=== PATIENT | male | born 1965 | race Asian ===

== ENCOUNTER 2019-01-15 10:44 | Inpatient (IN) | payer MEDICAID ==
[~2019-01-15] VITALS: Ht 160 cm; Wt 64.0 kg
[2019-01-15 10:55] VITALS: BP 156/103
--- NOTE | 2019-01-15 10:55 | NUR ---
PT BENJY BLS TO ER BED 08
--- NOTE | 2019-01-15 11:07 | NUR ---
MANDARIN SPEAKING PT BIB [facility] FROM HOME WITH C/O RUN OUT OF G-TUBE FEEDING FOR 9 DAYS WITH WEAKNESS AND UNABLE TO TALK AT THIS TIME. HAS BEEN ONLY DRINKING WATER. NORMALLY WALKS WITH A WALKER AND SEEN AT [facility]. HX; HTN, STROKE, COPD, ANXIETY RX; ALPRAZOLAM, CLONIDINE, DUONEB, LANSOPRAZOLE, LEVETIRACETAM, METOPROLOL, NITROGLYCERIN. PATIENT POSITIONED FOR COMFORT; HOB ELEVATED; BEDRAILS UP X2; BED DOWN. ER MD MADE AWARE OF PT STATUS.
--- NOTE | 2019-01-15 11:21 | NUR ---
STATED 1 MONTH AGO PT CAN EAT BY HIMSELF AND SHE DID NOT FEED HIM BY G TUBE. REPORT PT UNABLE TO EAT FOR 9 DAYS & DOES NOT HAVE NUTRITION FOOD TO FEED HIM BY G TUBE.
[2019-01-15] MEDS ORDERED: NACL 0.9% 2,000 ML IV SCH (11:37)
[2019-01-15] MEDS ORDERED: PIPERACILLIN/TAZOBACTAM 3.375 GM in DEXT 5% MINI-BAG PLUS 50 ML IV ONE (11:40)
[2019-01-15] MEDS ORDERED: FAMOTIDINE 20 MG/2 ML VIAL IVP ONE (11:40)
[2019-01-15] MEDS ORDERED: ONDANSETRON 4 MG/2 ML VIAL IVP ONE (11:40)
[2019-01-15] MEDS ORDERED: ACET-2619 PO (11:50)
--- NOTE | 2019-01-15 11:53 | NUR ---
ABG ATTEMPTED PT PULLED ARM AWAY AND STARTED TO WAVE HAND SAYING NO FAMILY AT BEDSIDE RN RITU FERRARA AND DR. RAMIREZ NOTIFIED
--- NOTE | 2019-01-15 11:54 | NUR ---
PT REFUSED ABG OR ANY MORE BLOOD DRAW, ER NOTIFTED.
--- NOTE | 2019-01-15 11:56 | NUR ---
LAB AT BEDSIDE
[2019-01-15 12:11] LABS: BASOPHILS # (AUTO) 0.1 K/uL (0.00-0.22); BASOPHILS % (AUTO) 0.3 % (0.0-2.0); HEMATOCRIT 51.1 % (36-52); HEMOGLOBIN 16.6 g/dL (12.0-18.0); LYMPHOCYTES # (AUTO) 1.4 K/uL (2.0-11.5); LYMPHOCYTES % (AUTO) 8.2 % (20.5-51.1); MEAN CORPUSCULAR HEMOGLOBIN 30 pg (27-31); MEAN CORPUSCULAR HGB CONC 32 g/dL (33-37); MEAN CORPUSCULAR VOLUME 92.3 fL (80-94); MONOCYTES # (AUTO) 1.4 K/uL (0.8-1.0); MONOCYTES % (AUTO) 7.9 % (1.7-9.3); NEUTROPHILS # (AUTO) 14.7 K/uL (1.8-7.7); NEUTROPHILS % (AUTO) 83.6 % (42.2-75.2); PLATELET COUNT (AUTO) 271 K/uL (140-450); RED BLOOD CELL COUNT(AUTO) 5.53 MIL/uL (4.20-6.10); WHITE BLOOD COUNT (AUTO) 17.6 K/uL (4.8-10.8)
[2019-01-15] MEDS ORDERED: PIPERACILLIN/TAZOBACTAM 3.375 GM VIAL IV ONE (12:19)
--- NOTE | 2019-01-15 12:28 | NUR ---
PT TAKEN TO CT AT THIS TIME
[2019-01-15 12:33] LABS: PROTHROMBIN TIME 11.6 secs (10.8-13.4)
--- NOTE | 2019-01-15 12:41 | NUR ---
PT RETURNED FROM CT AT THIS TIME
[2019-01-15 13:25] LABS: ALBUMIN 3.7 g/dL (3.4-5.0); CARBON DIOXIDE 28.8 mmol/L (21-32); CREATININE 2.7 mg/dL (0.7-1.3); POTASSIUM 4.7 mmol/L (3.5-5.1); TOTAL BILIRUBIN 0.7 mg/dL (0.0-1.0)
[2019-01-15 13:34] LABS: ANION GAP 18.9 (8-16)
[2019-01-15 13:54] LABS: ACETONE, SERUM NEGATIVE (NEGATIVE); URIC ACID 15.1 mg/dL (2.6-7.2)
[2019-01-15 14:01] LABS: AMYLASE 226 U/L (25-115); LIPASE 345 U/L (73-393)
[2019-01-15 14:02] LABS: GAMMA GLUTAMYL TRANSFERASE 24 U/L (7-51)
--- NOTE | 2019-01-15 14:11 | NUR ---
PT URENATED ON DIAPER. ATTAMPED INSERT ROSALES'S CATH BUT UNSUCCESSFUL. NOTIFIED DR RAMIREZ ORDER URINE BAG.
[2019-01-15] MEDS ORDERED: NACL 0.9% 1,000 ML IV SCH (14:23)
[2019-01-15] MEDS ORDERED: DOCUSATE SODIUM 100 MG GELCAP PO PRN (14:25)
[2019-01-15] MEDS ORDERED: MORPHINE SULFATE 2 MG/ML SYR IVP PRN (14:25)
[2019-01-15] MEDS ORDERED: ONDANSETRON 4 MG/2 ML VIAL IM/IVP PRN (14:25)
[2019-01-15] MEDS ORDERED: ACETAMINOPHEN 325 MG TAB PO PRN (14:25)
[2019-01-15] MEDS ORDERED: ZOLPIDEM 5 MG TAB PO PRN (14:25)
[2019-01-15] MEDS ORDERED: HYDROcodone/APAP 5/325 MG 1 TAB TAB PO PRN (14:25)
[2019-01-15] MEDS ORDERED: MECLIZINE 25 MG TAB PO PRN (15:05)
[2019-01-15 15:17] LABS: CHOL/HDL RATIO 5.3 (1-4.5); PHOSPHORUS 5.4 mg/dL (2.5-4.9); THYROID STIMULATING HORMONE 0.25 uIU/mL (0.34-3.74)
[2019-01-15 15:45] VITALS: BP 160/82
--- NOTE | 2019-01-15 15:45 | NUR ---
Patient will be admitted to care of DR CHAPPELL. Admited to TELE. Will go to room 105B. Belongings list completed. Report to DANII MICHELLE .
--- NOTE | 2019-01-15 15:45 | NUR ---
RECEIVED BEDSIDE REPORT FROM PATTERN STAMPER NURSE. PATIENT IS NONVERBAL. SKIN IS INTACT, SCABS ON BLE. IV ON L AC 20G SL. CLEAN, DRY AND INTACT. FALL RISK PROTOCOL IN PLACE. PATIENT HX STROKE. L SIDE WEAKNESS. PATIENT IS INCONTINENT. GTUBE IN PLACE. CLEAN, DRY AND INTACT. MRSA SWAB DONE. FAMILY AT BEDSIDE. ADMISSION QUESTIONS ANSWERED. FAMILY SAYS PATIENT PANICS AT HOSPITALS. BED IN LOW POSITION. CALL LIGHT WITHIN REACH. WILL CONTINUE TO MONITOR THE PATIENT.
[2019-01-15] MEDS ORDERED: ALBUTEROL SULFATE/IPRATROPIU 3 ML SOL IH PRN (15:50)
--- NOTE | 2019-01-15 16:05 | NUR ---
PATIENT REFUSED ULTRASOUND, FAMILY SAID THEY DONT WANT IT DONE BECAUSE IT WILL AGITATE HIM MORE. DR ANGELES IS AWARE.
[2019-01-15] MEDS ORDERED: AMLO5TAB PO (16:21)
[2019-01-15] MEDS ORDERED: LOSA50TA66 PO (16:22)
[2019-01-15] MEDS ORDERED: BISACODYL 10 MG SUPP RC SCH (16:35)
[2019-01-15] MEDS ORDERED: CALCIUM ACETATE 667 MG TAB PO SCH (16:45)
[2019-01-15] MEDS ORDERED: MAGNESIUM CITRATE 300 ML BTL GT SCH (17:00)
[2019-01-15] MEDS ORDERED: METOCLOPRAMIDE 10 MG/2 ML INJ VIAL IVP PRN (17:15)
[2019-01-15] MEDS: DEXT 5% / NACL 0.45% 1,000 ML IV SCH (17:54)
[2019-01-15] MEDS: PIPER/TAZO 3.375GM/D5W PREMIX 50 ML IV SCH (17:54)
[2019-01-15] MEDS: ALBUTEROL SULFATE/IPRATROPIU 3 ML SOL IH SCH (18:00)
[2019-01-15] MEDS ORDERED: METOCLOPRAMIDE 10 MG/2 ML INJ VIAL IVP SCH (18:00)
[2019-01-15] MEDS: METOCLOPRAMIDE 10 MG/2 ML INJ VIAL IVP SCH (18:03)
--- NOTE | 2019-01-15 18:40 | NUR ---
CHECKED GTUBE PLACEMENT USING SWOOSH. SWOOSH HEARD. NO RESIDUAL. STARTED FEEDING JEVITY AT 30ML/HR H20 FLUSH 200 Q4HRS.
[2019-01-15 18:41] LABS: ANION GAP 15.4 (8-16); CARBON DIOXIDE 29.4 mmol/L (21-32); CREATININE 2.4 mg/dL (0.7-1.3); POTASSIUM 3.8 mmol/L (3.5-5.1)
--- NOTE | 2019-01-15 19:29 | NUR ---
GAVE BEDSIDE REPORT TO FUEL EFFICIENT AIRCRAFT DESIGNER NURSE. PATIENT ENDORSED IN STABLE CONDITION
--- NOTE | 2019-01-15 19:30 | NUR ---
RECEIVED REPORT FROM DAYSHIFT NURSE AT BEDSIDE FOR CONTINUITY OF CARE. PT AWAKE AND CONFUSED. PT IV NOTED RAC 20G D5 1/2 NS 100. NO SOB NO S/S OF DISTRESS ON 1L NC. BED LOWERED PT HAS SITTER AT BEDSIDE. PT HAS G-TUBE JEVITY 30ML/HR WITH H2O 200 ML Q4H. CALL LIGHT WITHIN REACH WILL CONTINUE TO MONITOR.
[2019-01-15 20:00] VITALS: BP 119/96
--- NOTE | 2019-01-15 20:19 | NUR ---
CHECKED ON PATIENT AND HE IS STABLE AND ALERT SPO2 88 HR 90 PATIENT IS ON ROOM AIR. RT PLACED NASAL CANULA ON PATIENT BUT HE IS NOT COMPLIANT AND KEEPS TAKING THE NASAL CANNULA OFF. PATIENT ALSO KEEPS TAKING RT TX OFF. RN AWARE AND PATIENT IS STABLE AT THIS TIME
[2019-01-15] MEDS: ATORVASTATIN 20 MG TAB PO SCH (20:58)
[2019-01-15] MEDS: LORazepam 2 MG/ML VIAL IM/IVP PRN (20:58)
[2019-01-16] VITALS (7 sets, daily range): BP systolic 102–159; BP diastolic 60–90
[2019-01-16 00:41] LABS: ANION GAP 12.2 (8-16); CARBON DIOXIDE 26.4 mmol/L (21-32); CREATININE 2.8 mg/dL (0.7-1.3); POTASSIUM 3.6 mmol/L (3.5-5.1)
[2019-01-16] MEDS ORDERED: PIPERACILLIN/TAZOBACTAM 3.375 GM VIAL IV ONE (00:54)
[2019-01-16] MEDS: PIPER/TAZO 3.375GM/D5W PREMIX 50 ML IV SCH ×5 (01:21→23:23)
[2019-01-16] MEDS: METOCLOPRAMIDE 10 MG/2 ML INJ VIAL IVP SCH ×4 (01:22→19:12)
[2019-01-16] MEDS: DEXT 5% / NACL 0.45% 1,000 ML IV SCH (02:42)
[2019-01-16] MEDS: LORazepam 2 MG/ML VIAL IM/IVP PRN ×2 (04:02→19:19)
[2019-01-16] MEDS: ALBUTEROL SULFATE/IPRATROPIU 3 ML SOL IH SCH ×3 (06:56→18:47)
--- NOTE | 2019-01-16 07:25 | NUR ---
ENDORSED REPORT TO DAYSHIFT NURSE AT BEDSIDE FOR CONTINUITY OF CARE.
[2019-01-16 07:26] LABS: MAGNESIUM 3.6 mg/dL (1.8-2.4); PHOSPHORUS 3.7 mg/dL (2.5-4.9)
--- NOTE | 2019-01-16 07:26 | NUR ---
RECEIVED BEDSIDE REPORT FROM FISHER PURSE SEINE NURSE. PT IS NOT ALERTED AND ORIENTED; CONFUSED. FLACC-0. NO SIGNS OF DISTRESS NOTED. RA. RESPIRATION IS EVEN AND UNLABORED. IV ON LAC 20G,INTACT AND PATENT INFUSING PER MD ORDER. SCABS NOTED ON BLE, OTHERWISE SKIN IS INTACT AND CLEAN. G-TUBE IS INFUSING 30ML/HR. UNABLE TO AMBULATE; BEDREST AT THIS TIME. SAFETY MEASURES IN PLACE. BED IN LOW POSITION, AND CALL LIGHT WITHIN REACH.
[2019-01-16 07:28] LABS: HEMATOCRIT 46.7 % (36-52); HEMOGLOBIN 14.7 g/dL (12.0-18.0); MEAN CORPUSCULAR HEMOGLOBIN 30 pg (27-31); MEAN CORPUSCULAR HGB CONC 32 g/dL (33-37); MEAN CORPUSCULAR VOLUME 94.6 fL (80-94); PLATELET COUNT (AUTO) 223 K/uL (140-450); RED BLOOD CELL COUNT(AUTO) 4.93 MIL/uL (4.20-6.10); RED CELL DISTRIBUTION WIDTH 14.6 % (11.6-13.7); WHITE BLOOD COUNT (AUTO) 23.8 K/uL (4.8-10.8)
[2019-01-16 07:35] LABS: ANION GAP 13.1 (8-16); CARBON DIOXIDE 28.1 mmol/L (21-32); CREATININE 2.6 mg/dL (0.7-1.3); POTASSIUM 3.2 mmol/L (3.5-5.1)
[2019-01-16 07:54] LABS: LYMPHOCYTES % (MANUAL) 2 % (20-46); MONOCYTES % (MANUAL) 2 % (5-12)
--- NOTE | 2019-01-16 08:04 | NUR ---
PATIENT HAS BEEN SCREENED AND CATEGORIZED HIGH NUTRITION RISK. PATIENT WILL BE SEEN WITHIN 1-2 DAYS OF ADMISSION. 01/16/19-01/17/[address]
--- NOTE | 2019-01-16 08:26 | NUR ---
MARCOS IS AT BEDSIDE.
--- NOTE | 2019-01-16 08:45 | NUR ---
PT HAS A BM. CLEANED PT AND REPOSITIONED PT TO HIS LEFT SIDE AND USED PILLOWS TO OFF LOAD PRESSURE FROM BACK, SACRAL AREA, AND LEGS.
--- NOTE | 2019-01-16 10:06 | NUR ---
S.T. BEDSIDE SWALLOW EVAL COMPLETED. See report for details. Pt presents with profound oropharyngeal dysphagia c/b no observed attempts to orally manipulate boluses across all textures, no pharyngeal swallow response across all textures. Pt is at very high risk for aspiration. Recommend: 1) Strict NPO with non-oral feeding/hydration and meds via G-tube only. 2) Possible reassessment in 2 days if pt's mentation improves and is able to appropriately visually track a speaker and follow simple commands. 3) Spouse at bedside admitted to noncompliance re: oral feeding at home, despite NPO order resulting in G-tube placement. Extensive education is recommended in pt/family's primary language of Mandarin Nigerien. No tx recommended at this time, as pt does not present as strong rehab candidate. D/w VIVIANA Lopez, also at bedside, and who provided language interpretation. Time [id number]
[2019-01-16] MEDS: SENNA 8.6 MG TAB PO SCH ×3 (10:16→17:14)
[2019-01-16] MEDS: LACTOBACILLUS RHAMNOSUS GG 1 EACH CAP PO SCH (10:16)
[2019-01-16] MEDS: TAMSULOSIN 0.4 MG CAP PO SCH (10:16)
[2019-01-16] MEDS: LACTULOSE 20 GM/30 ML UDC PO SCH (10:16)
[2019-01-16] MEDS: amLODIPine 5 MG TAB PO SCH (10:17)
[2019-01-16] MEDS: LOSARTAN 50 MG TAB PO SCH (10:17)
--- NOTE | 2019-01-16 10:27 | NUR ---
ADMINISTERED MEDS PER MD ORDER VIA G-TUBE. CHECKED G-TUBE PLACEMENT USING SWOOSH AND HEARD. CHECKED RESIDUAL AND RECEIVED <5CC. FLUSHED G-TUBE WITH 30ML OF WATER BEFORE AND AFTER MEDICATION ADMINISTER. PT TOLERATED WELL. NO SIGNS OF DISTRESS NOTED. MARCOS IS AT BEDSIDE.
[2019-01-16] MEDS ORDERED: KCL 20 MEQ/WATER INJ PREMIX 100 ML IV SCH (10:39)
--- NOTE | 2019-01-16 10:45 | NUR ---
COLLECTED URINE VIA STRAIGHT CATHETER PER MD ORDER. DELIVERED URINE SPACEMEN TO LAB. PT TOLERATED WELL.
--- NOTE | 2019-01-16 11:15 | NUR ---
ADMINISTERED POTASSIUM PER MD ORDER. POTASSIUM LEVEL 3.2. REPOSITIONED PT TO HIS LEFT SIDE WITH PILLOW TO OFF LOAD PRESSURE FROM BACK, SHOULDER , AND LEGS. MARCOS AT BEDSIDE.
[2019-01-16 13:00] LABS: APPEARANCE,URINE CLOUDY (CLEAR); BILIRUBIN,URINE NEGATIVE (NEGATIVE); BLOOD, URINE 3+ (NEGATIVE); COLOR,URINE YELLOW (YELLOW); LEUKOCYTE ESTERASE ,URINE NEGATIVE (NEGATIVE); NITRITE, URINE NEGATIVE (NEGATIVE); UGLUCOSE NEGATIVE (NEGATIVE)
[2019-01-16 13:06] LABS: BARBITURATE, URINE NEG. ng/ml (NEG <=200); BENZODIAZEPINE, URINE NEG. ng/mL (NEG <=200); CANNABINOID, URINE NEG. ng/mL (NEG <=50); COCAINE, URINE NEG. ng/mL (NEG <=300); OPIATE, URINE NEG. ng/mL (NEG <=2000); PHENCYCLIDINE SCREEN,URINE NEG. ng/mL (NEG <=25)
[2019-01-16 13:15] LABS: RBC,URINE 20-50 /HPF (0-5); WBC,URINE 0-5 /HPF (0-5)
[2019-01-16 13:16] LABS: URIC ACID CRYSTALS,URINE 0-10 /HPF (None Seen)
--- NOTE | 2019-01-16 14:46 | NUR ---
01/16/19 RD INITIAL ASSESSMENT COMPLETED PLEASE REFER TO NUTRITION ASSESSMENT UNDER CARE ACTIVITY FOR ESTIMATED NUTRITIONAL NEEDS. 1. RECOMMEND NEPRO AT 50 ML/HR WITH 200 ML WATER FLUSH Q4H -THIS WILL PROVIDE A VOLUME OF 1200 ML, 2160 ENERGY, 97 GRAMS PROTEIN AND 2072 ML FLUID. IT MEETS 100% OF ENERGY AND PROTEIN NEEDS. 2. RD TO FOLLOW-UP 2-3 DAYS, HIGH RISK DUE TO TUBE FEEDING ANA TORRE, RD
[2019-01-16 15:32] LABS: ANION GAP 12.3 (8-16); CARBON DIOXIDE 27.6 mmol/L (21-32); CREATININE 2.3 mg/dL (0.7-1.3); POTASSIUM 3.9 mmol/L (3.5-5.1)
--- NOTE | 2019-01-16 16:22 | NUR ---
CHECKED PT'S BP; BP 177/130 AND PULSE 109. MD NOTIFIED AND ORDERED HYDRALAZINE IVP. ADMINISTERED PER MD ORDER.
[2019-01-16] MEDS: DEXTROSE 5% 1,000 ML IV SCH (16:24)
[2019-01-16] MEDS ORDERED: hydrALAZINE 20 MG/ML VIAL IVP SCH (16:30)
--- NOTE | 2019-01-16 18:55 | NUR ---
IV INFILTRATED. D/C IV, CANNULA INTACT AND COMPLETED. MINIMAL BLEEDING AT IV SITE. STARTED IV ON L HAND 22G, PATENT AND INTACT. PT TOLERATED WELL.
--- NOTE | 2019-01-16 19:30 | NUR ---
RECEIVED REPORT FROM DAYSHIFT NURSE AT BEDSIDE FOR CONTINUITY OF CARE. PT AWAKE AND CONFUSED. PT IV NOTED RFA 20G D5 125ML/HR. NO SOB NO S/S OF DISTRESS ON 1L NC. BED LOWERED PT HAS SITTER AT BEDSIDE. PT HAS G-TUBE JEVITY 30ML/HR WITH H2O 200 ML Q4H. CALL LIGHT WITHIN REACH WILL CONTINUE TO MONITOR.
[2019-01-16] MEDS: ATORVASTATIN 20 MG TAB PO SCH (20:10)
--- NOTE | 2019-01-16 21:21 | NUR ---
ENDORSED BEDSIDE REPORT TO ON SITE WASTEWATER SYSTEMS TECHNICIAN NURSE FOR CONTINUITY OF CARE. PT IS IN STABLE CONDITION.
[2019-01-17] MEDS: METOCLOPRAMIDE 10 MG/2 ML INJ VIAL IVP SCH ×4 (00:56→18:47)
[2019-01-17] MEDS: LORazepam 2 MG/ML VIAL IM/IVP PRN (00:57)
[2019-01-17] MEDS: DEXTROSE 5% 1,000 ML IV SCH ×3 (00:57→17:18)
[2019-01-17] MEDS ORDERED: HYDRAGUARD CREAM TP ONE (01:23)
[2019-01-17 03:08] LABS: ANION GAP 11.4 (8-16); POTASSIUM 3.4 mmol/L (3.5-5.1)
[2019-01-17 04:00] VITALS: BP 151/94
[2019-01-17] MEDS: PIPER/TAZO 3.375GM/D5W PREMIX 50 ML IV SCH ×3 (05:52→18:40)
[2019-01-17] MEDS: ALBUTEROL SULFATE/IPRATROPIU 3 ML SOL IH SCH ×3 (06:57→19:41)
--- NOTE | 2019-01-17 06:58 | NUR ---
PATIENT UNABLE TO FOLLOW COMMANDS FOR INCENTIVE SPIROMETRY THERAPY DUE ALOC Addendum: 01/17/19 at 0712 by Juancarlos Soares RT PAST HISTORY OF STROKE
[2019-01-17] MEDS ORDERED: VANCOMYCIN PER PHARMACY MC PRN (07:05)
--- NOTE | 2019-01-17 07:39 | NUR ---
ENDORSED REPORT TO DAYSHIFT NURSE AT BEDSIDE FOR CONTINUITY OF CARE.
[2019-01-17 07:54] LABS: MAGNESIUM 3.1 mg/dL (1.8-2.4); PHOSPHORUS 2.8 mg/dL (2.5-4.9)
[2019-01-17 08:00] VITALS: BP 141/96
[2019-01-17] MEDS ORDERED: KCL 20 MEQ/WATER INJ PREMIX 100 ML IV SCH (08:00)
[2019-01-17 08:05] LABS: ANION GAP 11.8 (8-16); CARBON DIOXIDE 28.9 mmol/L (21-32); POTASSIUM 3.7 mmol/L (3.5-5.1)
[2019-01-17 08:06] LABS: BASOPHILS % (AUTO) 0.2 % (0.0-2.0); CREATININE 1.9 mg/dL (0.7-1.3); EOSINOPHILS % (AUTO) 0.2 % (0.0-4.0); HEMATOCRIT 43.8 % (36-52); HEMOGLOBIN 13.8 g/dL (12.0-18.0); LYMPHOCYTES # (AUTO) 1.4 K/uL (2.0-11.5); LYMPHOCYTES % (AUTO) 10.9 % (20.5-51.1); MEAN CORPUSCULAR HEMOGLOBIN 30 pg (27-31); MEAN CORPUSCULAR HGB CONC 31 g/dL (33-37); MEAN CORPUSCULAR VOLUME 94.9 fL (80-94); MONOCYTES # (AUTO) 0.8 K/uL (0.8-1.0); MONOCYTES % (AUTO) 6.1 % (1.7-9.3); NEUTROPHILS # (AUTO) 10.3 K/uL (1.8-7.7); NEUTROPHILS % (AUTO) 82.6 % (42.2-75.2); PLATELET COUNT (AUTO) 204 K/uL (140-450); RED BLOOD CELL COUNT(AUTO) 4.62 MIL/uL (4.20-6.10); RED CELL DISTRIBUTION WIDTH 14.1 % (11.6-13.7); WHITE BLOOD COUNT (AUTO) 12.4 K/uL (4.8-10.8)
[2019-01-17] MEDS ORDERED: KCL 20 MEQ/WATER INJ PREMIX 100 ML IV ONE (08:55)
[2019-01-17] MEDS: TAMSULOSIN 0.4 MG CAP PO SCH (08:55)
--- NOTE | 2019-01-17 08:55 | NUR ---
PT EVALUATED BY DR STEVEN
[2019-01-17] MEDS: LACTULOSE 20 GM/30 ML UDC PO SCH (08:56)
[2019-01-17] MEDS: amLODIPine 5 MG TAB PO SCH (08:56)
[2019-01-17] MEDS: LACTOBACILLUS RHAMNOSUS GG 1 EACH CAP PO SCH (08:56)
[2019-01-17] MEDS: SENNA 8.6 MG TAB PO SCH ×3 (08:56→16:21)
[2019-01-17] MEDS: LOSARTAN 50 MG TAB PO SCH (08:56)
[2019-01-17] MEDS ORDERED: AZITHROMYCIN 250 MG TAB PO SCH (09:00)
[2019-01-17] MEDS: HYDRAGUARD CREAM TP SCH (09:00)
[2019-01-17] MEDS: ASCORBIC ACID 500 MG TAB GT SCH (09:00)
[2019-01-17] MEDS ORDERED: ASCORBIC ACID 500 MG/5 ML ORASYR GT SCH (09:00)
--- NOTE | 2019-01-17 09:00 | NUR ---
PER DR STEVEN, NO NEED TO ADMINISTER K-RIDER. POTASSIUM LEVEL 3.7 AT THIS TIME
[2019-01-17] MEDS ORDERED: NACL 0.9% 500 ML IV SCH (09:25)
[2019-01-17] MEDS: VANCOMYCIN 750 MG in DEXTROSE 5% 250 ML IV SCH (11:23)
[2019-01-17 12:00] VITALS: BP 114/74
--- NOTE | 2019-01-17 14:11 | NUR ---
PT CALMLY RESTING IN BED. NO S/S OF DISTRESS NOTED. AT BEDSIDE
--- NOTE | 2019-01-17 14:19 | NUR ---
PT NOTE 1400 HOLD PT TX FOR TODAY DUE TO ALOC; Pt OPENS EYES BUT UNABLE TO RESPOND TO INSTRUCTIONS; WILL FOLLOW UP WITH Pt ONCE ABLE TO SAFELY PARTICIPATE; RN NOTIFIED
--- NOTE | 2019-01-17 14:40 | NUR ---
PT HAD LOOSE BM. PERINEAL CARE GIVEN. PATIENT TURNED AND REPOSITIONED FOR COMFORT
[2019-01-17 15:06] LABS: ANION GAP 11.4 (8-16); CARBON DIOXIDE 26.7 mmol/L (21-32); CREATININE 1.7 mg/dL (0.7-1.3); POTASSIUM 3.1 mmol/L (3.5-5.1)
[2019-01-17 16:00] VITALS: BP 162/96
--- NOTE | 2019-01-17 16:30 | NUR ---
MADE DR PHAN AWARE OF PATIENT'S ELEVATED BP. DR CABEZAS PUT IN ORDERS
[2019-01-17] MEDS: hydrALAZINE 20 MG/ML VIAL IVP PRN (18:42)
[2019-01-17 20:00] VITALS: BP 150/78
--- NOTE | 2019-01-17 20:00 | NUR ---
PATIENT REPORT GIVEN AT BEDSIDE. PATIENT IN STABLE CONDITION. AT BEDSIDE
--- NOTE | 2019-01-17 20:05 | NUR ---
RECEIVED PT FROM SONA RN PT AOX1 CONFUSED ON TELMETRY SR IV ON RT HAND INFUSING WELL, RELATIVES AT BED SIDE PT TRYING TO GET OUT OF BED BED ALARM G TUBE FEEDING WELL TOLERATED INITIAL ASSESSMENT DONE
--- NOTE | 2019-01-17 21:00 | NUR ---
LAB IS HERE AND FAMILY REFUSED DRAW BLOOD DR AWARE AND PT PULL ;OUT THE IV AND A NEW ONE DWILL BE INSERTED
--- NOTE | 2019-01-17 22:00 | NUR ---
PT HAS A BIG BM SPONGE BATH GIVEN LINEN CHANGED PT ON TELE SR IV ON LEFT HAND INFUSING WELL GAUGE # 22
[2019-01-17] MEDS: ATORVASTATIN 20 MG TAB PO SCH (22:20)
[2019-01-18] VITALS: BP 145/90
[2019-01-18] MEDS: DEXTROSE 5% 1,000 ML IV SCH (00:05)
[2019-01-18] MEDS: METOCLOPRAMIDE 10 MG/2 ML INJ VIAL IVP SCH ×4 (00:27→17:02)
[2019-01-18] MEDS: PIPER/TAZO 3.375GM/D5W PREMIX 50 ML IV SCH ×4 (00:27→17:02)
--- NOTE | 2019-01-18 01:00 | NUR ---
PT SLEEPING WELL REALTIVES AT BED SIDE NOT DISTRESS NOTED PT QUIET ON TELEMETRY SR
[2019-01-18 04:00] VITALS: BP 162/96
--- NOTE | 2019-01-18 04:00 | NUR ---
SPONGE BATH GIVEN LINEN CHANGED, NOT DISTRESS NOTED ON TELE, REPOSITIONED [id number] SR
[2019-01-18] MEDS: hydrALAZINE 20 MG/ML VIAL IVP PRN (04:47)
--- NOTE | 2019-01-18 06:39 | NUR ---
PT LOOKS MORE AWAKE NOT AGITATED G TUBE FEEDING WELL TOLERATED ON TELMETRY SR REMAIN STABLE AT THIS TIME.IV BABATUNDE LEFT HKAND INFUSING WELL
[2019-01-18] MEDS ORDERED: MAG SULF 2000 MG/WATER PREMIX 50 ML IV ONE (07:00)
[2019-01-18] MEDS ORDERED: KCL 20 MEQ/WATER INJ PREMIX 200 ML IV SCH (07:00)
[2019-01-18 07:02] LABS: BASOPHILS % (AUTO) 0.1 % (0.0-2.0); EOSINOPHILS # (AUTO) 0.1 K/uL (0-0.4); EOSINOPHILS % (AUTO) 0.7 % (0.0-4.0); HEMATOCRIT 41.5 % (36-52); HEMOGLOBIN 13.1 g/dL (12.0-18.0); LYMPHOCYTES # (AUTO) 1.3 K/uL (2.0-11.5); LYMPHOCYTES % (AUTO) 11.5 % (20.5-51.1); MEAN CORPUSCULAR HEMOGLOBIN 30 pg (27-31); MEAN CORPUSCULAR HGB CONC 32 g/dL (33-37); MEAN CORPUSCULAR VOLUME 93.5 fL (80-94); MONOCYTES # (AUTO) 0.6 K/uL (0.8-1.0); MONOCYTES % (AUTO) 5.1 % (1.7-9.3); NEUTROPHILS # (AUTO) 9.5 K/uL (1.8-7.7); NEUTROPHILS % (AUTO) 82.6 % (42.2-75.2); PLATELET COUNT (AUTO) 180 K/uL (140-450); RED BLOOD CELL COUNT(AUTO) 4.44 MIL/uL (4.20-6.10); RED CELL DISTRIBUTION WIDTH 13.9 % (11.6-13.7); WHITE BLOOD COUNT (AUTO) 11.5 K/uL (4.8-10.8)
--- NOTE | 2019-01-18 07:18 | NUR ---
REPORT RECEIVED FROM SOIL SCIENCE TEACHER NURSE LEONEL SHAFFER SLEEPING QUIETLY IN NAD, AROUSES EASILY, RESISTS CARE, APPEARS IN NO PAIN OR DISCOMFORT, RESP EVEN UNLABORED ON RA, SKIN WARM DRY COLOR WNL, AT BEDSIDE, POC REVIEWED, ALL SAFETY MEASURES IN PLACE, NO IMMEDIATE NEEDS AT THIS TIME, WILL CONTINUE TO MONITOR.
--- NOTE | 2019-01-18 07:38 | NUR ---
DR MCKEON AND MD TEAM AT BEDSIDE.
[2019-01-18 07:46] LABS: MAGNESIUM 2.5 mg/dL (1.8-2.4); PHOSPHORUS 3.1 mg/dL (2.5-4.9)
[2019-01-18 08:00] VITALS: BP 137/90
[2019-01-18] MEDS: ALBUTEROL SULFATE/IPRATROPIU 3 ML SOL IH SCH ×3 (08:07→19:35)
[2019-01-18 08:09] LABS: ANION GAP 10.2 (8-16); CARBON DIOXIDE 28.9 mmol/L (21-32); CREATININE 1.5 mg/dL (0.7-1.3); POTASSIUM 3.1 mmol/L (3.5-5.1)
--- NOTE | 2019-01-18 08:20 | NUR ---
FAMILY AT BEDSIDE. RECEIVED PATIENT ON ROOM AIR, PULSE OX SAT 96%. SCHEDULED BREATHING TREATMENT ADMINISTERED. TOLERATED TX WELL, NO ADVERSE SIDE EFFECTS. NO RESPIRATORY DISTRESS NOTED. WILL CONTINUE TO MONITOR.
[2019-01-18] MEDS: LORazepam 2 MG/ML VIAL IM/IVP PRN ×2 (08:47→17:03)
[2019-01-18] MEDS: amLODIPine 5 MG TAB PO SCH (08:50)
[2019-01-18] MEDS: LACTOBACILLUS RHAMNOSUS GG 1 EACH CAP PO SCH (08:50)
[2019-01-18] MEDS: TAMSULOSIN 0.4 MG CAP PO SCH (08:50)
[2019-01-18] MEDS: ASCORBIC ACID 500 MG TAB GT SCH (08:51)
[2019-01-18] MEDS: LOSARTAN 50 MG TAB PO SCH (08:51)
[2019-01-18] MEDS: LACTULOSE 20 GM/30 ML UDC PO SCH (09:00)
[2019-01-18] MEDS: SENNA 8.6 MG TAB PO SCH ×3 (09:00→16:40)
[2019-01-18] MEDS: HYDRAGUARD CREAM TP SCH (09:04)
--- NOTE | 2019-01-18 09:05 | NUR ---
PT ATTEMPTING TO GET OUT OUT OF BED, APPEARS AGITATED, TRYING TO GRAB IV TUBING AND GT TUBING, ATIVAN GIVEN PER PRN ORDER, PT REPOSITIONED FOR COMFORT, AM MEDS GIVEN, PT'S STATES HE HAD 4 LOOSE BM YESTERDAY, REFUSED SENNA, LACTULOSE, IV K STARTED, SITE WNL.
[2019-01-18] MEDS: NACL 0.45% IV SCH ×2 (09:14→20:23)
[2019-01-18] MEDS: POTASSIUM CHLORIDE IV SCH ×2 (09:14→20:23)
[2019-01-18] MEDS ORDERED: INSULIN LISPRO SLIDING SCALE 100 UNITS/ML VIAL SUBQ PRN (10:00)
[2019-01-18] MEDS ORDERED: DEXTROSE 50% 50 ML SYR IVP PRN (10:00)
--- NOTE | 2019-01-18 10:35 | NUR ---
PERICARE DONE, DIAPER CHANGED, LINEN CHANGED, POSITIONED FOR COMFORT, PT APPEARS IN NAD, NOW MORE CALM AND RESTING QUIETLY.
--- NOTE | 2019-01-18 11:04 | NUR ---
S.T. BEDSIDE SWALLOW RE-EVAL ORDER RECEIVED, CHART REVIEWED. Pt seen at bedside with spouse present. Clinician with limited Mandarin Macedonian fluency. Pt agitated, unable to sit upright in bed without leaning forward or to side, unable to follow simple verbal commands. Spouse reported that pt responded appropriately earlier this AM to his name by nodding. P.O. trials of ice chip and 2 cc bolus of water attempted x 8 via spoon. Pt demonstrated no attempts at oral prep/bolus manipulation or pharyngeal swallow response to cold stimuli from single ice chips or water on a spoon, despite max verbal and tactile cueing. Pt's ability to tolerate p.o. trials appears worse than during initial eval on 01/16/19. Pt continues to demonstrate a profound oropharyngeal dysphagia and is not appropriate for p.o. intake at this time. Recommend: 1) Continue strict NPO w/ non-oral means of feeding, hydration and meds via G-tube. 2) DC to [facility] as pt presents with very limited rehab potential. No further tx indicated at this time. 3) Education for spouse in regards to providing bolus hydration (water) via G-tube, as she indicated that their feeding pump at home is malfunctioning and the "water side" has not functioned properly. This clinician provided education (with limited language proficiency in Mandarin) re: the risk of aspiration, reason for NPO recommendation, stating that it is 'dangerous' to feed pt at this time. Spouse communicated understanding. Time [id number]
[2019-01-18 12:00] VITALS: BP 140/89
--- NOTE | 2019-01-18 12:09 | NUR ---
VITALS TAKEN, PT SLEEPING QUIETLY IN NAD, RESP EVEN UNLABORED ON RA, NO IMMEDIATE NEEDS AT THIS TIME.
[2019-01-18] MEDS: VANCOMYCIN 750 MG in DEXTROSE 5% 250 ML IV SCH (12:19)
[2019-01-18] MEDS: BLOOD GLUCOSE MONITORING 1 DEV DEV FS SCH ×3 (12:19→20:20)
--- NOTE | 2019-01-18 14:00 | NUR ---
PT RESTING QUIETLY IN NAD, FEEDING TUBE CHANGED, NEW FORMULA BOTTLE STARTED. IV SITE RE-SECURED, NO CHNAGES IN CONDITION.
--- NOTE | 2019-01-18 14:20 | NUR ---
TREATMENT NOT GIVEN. PATIENT ASLEEP. RN NOTIFIED. WILL CONTINUE TO MONITOR.
[2019-01-18 16:00] VITALS: BP 140/88
--- NOTE | 2019-01-18 16:52 | NUR ---
PERICARE DONE, DIAPER CHNAGED, PT RESTLESS, UNABLE TO SIT STILL, TRIES TO GET OUT OF BED, PUSHES AWAY STAFF'S HANDS WITH CARE.
--- NOTE | 2019-01-18 17:14 | NUR ---
RETURNED BACK TO BEDSIDE, PT AWAKE, LOOKING AROUND, LISTENING TO MUSIC AND 'S SINGING. APPEARS MORE COMFORTABLE, RESTING QUIETLY.
--- NOTE | 2019-01-18 19:16 | NUR ---
REPORT GIVEN TO REGISTRY NURSE NURSE LEONEL WINTER IN STABLE CONDITION SLEEPING. AT BEDSIDE.
--- NOTE | 2019-01-18 19:17 | NUR ---
RECEIVED REPORT FROM VIVIANA MOY FOR CONTINUITY OF CARE. PT IS CONFUSED, ON ROOM AIR. PT ABLE TO MAKE SOME NEEDS KNOWN, AND ABLE TO FOLLOW SIMPLE COMMANDS COMMANDS. PT IS ON BEDREST AT THE MOMENT WITH FALL PRECAUTIONS IN PLACE. SKIN IS INTACT. PT HAS A 22G IV TO LEFT FOREARM, ASYMPTOMATIC AND INTACT. VITAL SIGNS WITHIN NORMAL LIMITS. PT STABLE, FLACC 0, NO SIGNS OF DISTRESS NOTED AT THIS TIME. PT POSITIONED FOR COMFORT. BED IN LOWEST POSITION, BED ALARM ON. WILL CONTINUE TO MONITOR.
[2019-01-18 20:00] VITALS: BP 141/77
[2019-01-18] MEDS: ATORVASTATIN 20 MG TAB PO SCH (20:20)
--- NOTE | 2019-01-18 20:20 | NUR ---
ADMINISTERED SCHEDULED MEDICATION FOLLOWED BY WATER FLUSH, PT TOLERATED WELL. NO INSULIN NEEDED FOR BLOOD SUGAR, 84.
--- NOTE | 2019-01-18 21:25 | NUR ---
CLEANED PT BEDDING AND PT BECAUSE THERE WAS URINE ALL OVER. PT TOLERATED WELL.
--- NOTE | 2019-01-18 22:21 | NUR ---
PT RESTING NOW, STABLE, NO SIGNS OF DISTRESS NOTED AT THIS TIME. PT POSITIONED FOR COMFORT. BED IN LOWEST POSITION, BED ALARM ON. WILL CONTINUE TO MONITOR.
[2019-01-19] VITALS: BP 154/96
--- NOTE | 2019-01-19 | NUR ---
VITAL SIGNS WITHIN NORMAL LIMITS. PT STABLE, FLACC 0, NO SIGNS OF DISTRESS NOTED AT THIS TIME. PT POSITIONED FOR COMFORT. BED IN LOWEST POSITION, BED ALARM ON. WILL CONTINUE TO MONITOR.
[2019-01-19] MEDS: PIPER/TAZO 3.375GM/D5W PREMIX 50 ML IV SCH ×4 (00:48→17:39)
[2019-01-19] MEDS: METOCLOPRAMIDE 10 MG/2 ML INJ VIAL IVP SCH ×4 (00:48→17:39)
--- NOTE | 2019-01-19 02:15 | NUR ---
PT WOKE UP AND STARTED WALKING WITH VERY UNSTEADY GAIT. WHEN I TRIED TO HELP HIM HE STARTED SWINGING HIS ARMS AT ME, COMPLIANCE PARALEGAL TRIED TO GET HIM TO SIT IN WHEELCHAIR AND HE REFUSED. SECURITY WAS CALLED WHEN HE STARTED GETTING AGITATED AND HE KEPT WALKING, ALMOST FALLING FORWARD SEVERAL TIMES, BUT I WAS BEHIND HIM TRYING TO HELP HIM STEADY HIS GAIT. HE REACHED THE END OF THE HALLWAY AND STOOD AGAINST THE WALL AND I NOTICED HIS LEFT EAR WAS BLEEDING. I LET DR MCDONALD KNOW AND HE SAID HE WOULD GO CHECK HIS EAR. MEANWHILE CLINIC OFFICE COORDINATOR ISABELLA TRIED TO GET HIM TO SIT AND/OR GO BACK TO HIS ROOM. PT KEPT REFUSING AND THREATENED TO "GRAB A STICK AND CRACK OUR SKULLS OPEN IF WE TOUCHED HIM." HE SAID WE WERE "IDIOTS" BECAUSE WE KEPT TRYING TO CONVINCE HIM TO SIT AND HE DIDN'T WANT TO, WE TOLD HIM WE DIDN'T WANT HIM TO FALL AND HE STAYED QUIET. AFTER A FEW MINUTES PT STARTED GETTING OFF WALL AGAIN AND STARTED TRYING TO WALK HE SAID I'M GOING BACK TO BED. PT ALLOWED FOR ME TO HELP HIM GET TO HIS BED. ONCE IN BED DR MCDONALD EXAMINED HIS EAR AND SAID IT LOOKED LIKE PT SCRATCHED AND THAT WAS WERE BLOOD WAS COMING FROM. CLEANED PT'S EAR, PT LAID DOWN AND I COVERED HIM WITH A BLANKET. Addendum: 01/19/19 at 0446 by Brigid Musa RN WRONG PT, DISREGARD.
--- NOTE | 2019-01-19 02:20 | NUR ---
PT RESTING. NO SIGNS OF DISTRESS NOTED AT THIS TIME. PT POSITIONED FOR COMFORT. BED IN LOWEST POSITION, BED ALARM ON. WILL CONTINUE TO MONITOR.
[2019-01-19 04:00] VITALS: BP 162/102
--- NOTE | 2019-01-19 04:00 | NUR ---
BP ELEVATED, WILL ADMINISTER PRN BP MEDICATION. OTHER VITAL SIGNS WITHIN NORMAL LIMITS. PT STABLE, FLACC 0, NO SIGNS OF DISTRESS NOTED AT THIS TIME. PT POSITIONED FOR COMFORT. BED IN LOWEST POSITION, BED ALARM ON. WILL CONTINUE TO MONITOR.
[2019-01-19] MEDS: hydrALAZINE 20 MG/ML VIAL IVP PRN (04:39)
--- NOTE | 2019-01-19 04:40 | NUR ---
ADMINISTERED HYDRALAZINE ORDERED FOR BP. PT TOLERATED WELL. WILL REASSESS.
[2019-01-19] MEDS: BLOOD GLUCOSE MONITORING 1 DEV DEV FS SCH ×4 (05:53→21:45)
--- NOTE | 2019-01-19 05:56 | NUR ---
ADMINISTERED SCHEDULED MEDICATIONS, PT TOLERATED WELL.
[2019-01-19 06:20] LABS: PHOSPHORUS 2.6 mg/dL (2.5-4.9)
[2019-01-19 06:21] LABS: ANION GAP 6.5 (8-16); CARBON DIOXIDE 32.5 mmol/L (21-32); CREATININE 1.1 mg/dL (0.7-1.3)
[2019-01-19 06:40] LABS: BASOPHILS % (AUTO) 0.2 % (0.0-2.0); EOSINOPHILS # (AUTO) 0.2 K/uL (0-0.4); HEMATOCRIT 40.8 % (36-52); HEMOGLOBIN 13.2 g/dL (12.0-18.0); LYMPHOCYTES # (AUTO) 1.3 K/uL (2.0-11.5); LYMPHOCYTES % (AUTO) 17.6 % (20.5-51.1); MEAN CORPUSCULAR HEMOGLOBIN 30 pg (27-31); MEAN CORPUSCULAR HGB CONC 32 g/dL (33-37); MEAN CORPUSCULAR VOLUME 92.5 fL (80-94); MONOCYTES # (AUTO) 0.6 K/uL (0.8-1.0); NEUTROPHILS # (AUTO) 5.4 K/uL (1.8-7.7); NEUTROPHILS % (AUTO) 72.2 % (42.2-75.2); PLATELET COUNT (AUTO) 157 K/uL (140-450); RED BLOOD CELL COUNT(AUTO) 4.41 MIL/uL (4.20-6.10); RED CELL DISTRIBUTION WIDTH 13.6 % (11.6-13.7); WHITE BLOOD COUNT (AUTO) 7.4 K/uL (4.8-10.8)
--- NOTE | 2019-01-19 07:10 | NUR ---
ENDORSED PT TO DAY SHIFT RN DANII AT BEDSIDE FOR CONTINUITY OF CARE. PT IN STABLE CONDITION.
--- NOTE | 2019-01-19 07:11 | NUR ---
RECEIVED BEDSIDE REPORT FROM SENIOR SUSTAINABILITY ADVISOR NURSE. PATIENT IS SLEEPING. NONVERBAL. PATIENT BEDREST. 1:1 SITTER PATIENT TRIES TO GET OUT OF BED. HX CVA L SIDE WEAKNESS. FALL RISK PROTOCOL IN PLACE. SKIN HAS SCABS KIRT LEGS. REDNESS ON ELBOWS. L HAND 22G INFUSING 1/2NS W 10MEQ POTASSIUM. CLEAN, DRY AND INTACT. PATIENT HAS GTUBE NEPRO 50ML W H20 FLUSH 200 Q4 HRS. PATIENT IS INCONTINENT. BED IN LOW POSITION. CALL LIGHT WITHIN REACH. WILL CONTINUE TO MONITOR THE PATIENT.
[2019-01-19] MEDS: ALBUTEROL SULFATE/IPRATROPIU 3 ML SOL IH SCH ×3 (07:37→18:00)
--- NOTE | 2019-01-19 07:39 | NUR ---
HHN THERAPY STOPPED AT THIS TIME CEPHALOMETRIC TECHNICIAN ATTENDING FULL ARREST IN ED CEPHALOMETRIC TECHNICIAN TO RESUME THERAPY AT A LATER TIME NO SOB NOTED
[2019-01-19 08:00] VITALS: BP 141/68
[2019-01-19] MEDS ORDERED: KCL 20 MEQ/WATER INJ PREMIX 100 ML IV SCH (08:00)
--- NOTE | 2019-01-19 08:31 | NUR ---
OUTREACH DIRECTOR RESUMING HHN THERAPY STATED AT 0724
[2019-01-19] MEDS: LACTULOSE 20 GM/30 ML UDC PO SCH (09:00)
[2019-01-19] MEDS: LACTOBACILLUS RHAMNOSUS GG 1 EACH CAP PO SCH (09:01)
[2019-01-19] MEDS: LOSARTAN 50 MG TAB PO SCH (09:01)
[2019-01-19] MEDS: SENNA 8.6 MG TAB PO SCH ×3 (09:01→16:35)
[2019-01-19] MEDS: TAMSULOSIN 0.4 MG CAP PO SCH (09:02)
[2019-01-19] MEDS: HYDRAGUARD CREAM TP SCH (09:02)
[2019-01-19] MEDS: amLODIPine 5 MG TAB PO SCH (09:02)
[2019-01-19] MEDS: ASCORBIC ACID 500 MG TAB GT SCH (09:02)
--- NOTE | 2019-01-19 09:21 | NUR ---
RECEIVED ORDER FOR SNF FOR P.T. I CALLED LUISANA AND SPOKE WITH THE PATIENT'S CMHEATH [phone]. SHE SAID TO FAX THE ORDER AND PT NOTES AND FACE SHEET TO HER AT [phone], WHICH I DID. I INFORMED HER I HAD A LIST OF SNF'S FOR LUISANA.
--- NOTE | 2019-01-19 09:25 | NUR ---
CHECKED FOR GTUBE PLACEMENT USING SWOOSH. SWOOSH HEARD. CRUSHED AND ADMINISTERED MEDS. FLUSHED BEFORE AND AFTER. PATIENT TOLERATED WELL. AT BEDSIDE. WILL CONTINUE TO MONITOR. 1:1 SITTER
[2019-01-19] MEDS ORDERED: LEVO750T2 PO (10:04)
[2019-01-19] MEDS ORDERED: COL100L GT (10:04)
[2019-01-19] MEDS ORDERED: L. R1CAP PO (10:04)
--- NOTE | 2019-01-19 10:41 | NUR ---
PATIENT AT BEDSIDE. PATIENT IN NO DISTRESS. 1:1 SITTER AT BEDSIDE
[2019-01-19] MEDS: VANCOMYCIN 750 MG in DEXTROSE 5% 250 ML IV SCH ×2 (11:54→23:48)
[2019-01-19 12:00] VITALS: BP 147/71
--- NOTE | 2019-01-19 12:14 | NUR ---
ADMINISTERED MEDS ORDERED. HOLDING SENNA. PATIENT IS HAVING DIARRHEA. WILL CONTINUE TO MONITOR THE PATIENT. 1:1 SITTER AT BEDSIDE
--- NOTE | 2019-01-19 13:45 | NUR ---
PATIENT IS SLEEPING. NO SIGNS OF DISTRESS. AT BEDSIDE
--- NOTE | 2019-01-19 13:57 | NUR ---
SPOKE WITH SHRUTI JOE FROM [facility], [id number]. I SENT HER THE ORDER FOR SNF FOR PT. I TOLD HER THAT THE WAS THINKING ABOUT SNF. HEATH SAID THAT THEY COULD DO HOME HEALTH. HEATH CALLED ME AGAIN AND INFORMED ME THAT THIS PATIENT HAD [facility], . I CALLED THEM AND SKOKE WITH JUAN MANUEL AND SHE SAID THEY WERE SEEING THE PATIENT AT AN ADDRESS IN [place] BECAUSE THEY HAD A MANDARIN NURSE IN THAT AREA. JUAN MANUEL SAID THEY DO NOT HAVE A MANDARIN SPEAKING NURSE IN THIS AREA AND CANNOT TAKE THE PATIENT. HEATH SAID FOR HOME HEALTH, USE [facility], PHONE [phone] FAX [phone] I WAS ALSO TOLD BY HEATH THAT THE TUBE FEEDING WAS SUPPOSE TO BE SUPPLIED BY [facility]. I CALLED [facility] AND WAS TOLD THAT [facility] NEVER SERVICED THE PATIENT, DUE TO NO APPROVAL FROM [facility]. SPOKE WITH HEATH AND SHE SAID TO TRY SNF'S FOR THIS PATIENT, FAXED INQUIRY TO [facility], [facility]. [facility], NO BEDS [facility], NO BEDS. HEATH ALSO SAID TO FAX THE ORDER FOR A WHEELCHAIR TO [facility], IF PATIENT GOES HOME, CAN USE [facility], IF PATIENT GOES HOME OR SNF, FOR TRANSPORT CALL [phone], OP 4 OP1. NO AUTH NEEDED PER HEATH FROM [facility].
--- NOTE | 2019-01-19 14:12 | NUR ---
PATIENT LAYING IN BED. NO SIGNS OF DISTRESS. AT BEDSIDE.
--- NOTE | 2019-01-19 15:32 | NUR ---
RECEIVED CALL FROM [facility]. NO BEDS I SPOKE WITH HEATH AT [facility]. SHE SAID TO TRY [facility] THAT CAN SOMETIMES HELP GET A FACILITY. PHONE [phone] FAX [phone]. I CALLED [facility] AND SPOKE WITH JAYSON AND FAXED INFORMATION. HEATH SAID SHE WOULD AUTHORIZE A SNF FOR THIS PATIENT. SHE WOULD AUTHORIZE A WHEELCHAIR. IF THE PATIENT GOES HOME, [facility], SHE CANNOT AUTHORIZE ANY HOME HEALTH IF THE PATIENT DOESN'T LIVE IN [facility].
[2019-01-19 16:00] VITALS: BP 152/92
--- NOTE | 2019-01-19 16:00 | NUR ---
CALLED [facility]. FAXED INQUIRY. [phone] FAX [phone]. TOLD THEM TO CALL THE FLOOR IF THEY HAVE A BED.
--- NOTE | 2019-01-19 16:23 | NUR ---
PATIENT SLEEPING. NO SIGNS OF DISTRESS. 1:1 SITTER AT BEDSIDE
--- NOTE | 2019-01-19 16:53 | NUR ---
CALLED [facility] AND SPOKE WITH JERAD. SHE SAID NO MALE BEDS TODAY. I GAVE HER THE PHONE NUMBER TO THE FLOOR IF A BED BECOMES AVAILABLE. CALLED [facility] AND SPOKE WITH JAKUB. I GAVE HER THE PHONE NUMBER TO THE FLOOR TO CALL IF THEY CAN ACCEPT THE PATIENT. SENT INQUIRY TO [facility] AND SPOKE WITH CHRISSIE. I TOLD HER IF THEY CAN ACCEPT THE PATIENT, TO CALL THE FLOOR AND GAVE HER THE NUMBER. I CALLED HEATH FROM [facility]. THE AFTER HOURS PHONE NUMBER FOR AUTHORIZATION IS [phone] I CALLED JAYSON AT [facility]. SO FAR SHE HASN'T FOUND A PLACE FOR THIS PATIENT. I GAVE JAYSON THE PHONE NUMBER FOR THE AFTER HOURS PERSON FOR [facility]. PER HEATH FROM [facility], IF THE PATIENT STAYES IN [facility], [facility] NEEDS TO BE CALL TO GET PATIENT OFF [facility] AND TO [facility]. PHONE [phone].
--- NOTE | 2019-01-19 17:39 | NUR ---
ADMINISTERED MEDS AT THIS TIME. PATIENT TOLERATED WELL. WHEELCHAIR WAS DELIVERED AND SIGNED BY THE PATIENTS
--- NOTE | 2019-01-19 19:10 | NUR ---
GAVE BEDSIDE REPORT TO PODIATRIST NURSE. PATIENT ENDORSED IN STABLE CONDITION
--- NOTE | 2019-01-19 19:15 | NUR ---
RECEIVED REPORT FROM DAY SHIFT NURSE. PT AWAKE. APHASIC. NO S/S OF PAIN OR SOB. PT HAS LEFT SIDED WEAKNESS. IV TO LEFT HAND #22G, PATENT AND INTACT. G-TUBE IN PLACE, NEPRO AT 50 ML/HR INFUSING WELL. PT HAS SCABS TO BILATERAL LEGS AND REDNESS TO ELBOWS. SAFETY PRECAUTION IN PLACE. CALL LIGHT WITHIN REACH.
[2019-01-19 20:00] VITALS: BP 156/82
[2019-01-19] MEDS: ATORVASTATIN 20 MG TAB PO SCH (21:05)
--- NOTE | 2019-01-19 21:10 | NUR ---
BLOOD SUGAR CHECKED 113. NO INSULIN COVERAGE. CHECKED G-TUBE RESIDUAL 5 ML. DUE MEDS GIVEN. PT TOLERATED WELL. PT'S AT BEDSIDE.
[2019-01-20] VITALS: BP 138/67
--- NOTE | 2019-01-20 00:05 | NUR ---
PT SLEEPING BUT WAKES EASILY. RESP EVEN AND UNLABORED. NO S/S OF PAIN OR DISCOMFORT.
[2019-01-20] MEDS: METOCLOPRAMIDE 10 MG/2 ML INJ VIAL IVP SCH ×5 (00:29→23:49)
[2019-01-20] MEDS: PIPER/TAZO 3.375GM/D5W PREMIX 50 ML IV SCH ×5 (00:29→23:49)
--- NOTE | 2019-01-20 02:39 | NUR ---
PT IN BED, AWAKE. NO S/S OF PAIN. NO S/S OF SOB. PT KEPT CLEAN, DRY AND COMFORTABLE. PT TOLERATING FEEDING WELL.
[2019-01-20 04:00] VITALS: BP 142/73
--- NOTE | 2019-01-20 04:50 | NUR ---
PT AWAKE. NO S/S OF PAIN OR DISCOMFORT. PT WAS CLEANED AND CHANGED BY FEATHEREDGE MACHINE OPERATOR. NO RESP DISTRESS NOTED.
--- NOTE | 2019-01-20 06:30 | NUR ---
PT SLEEPING. NO ACUTE DISTRESS NOTED. BLOOD SUGAR CHECKED 113. NO INSULIN COVERAGE.
[2019-01-20] MEDS: BLOOD GLUCOSE MONITORING 1 DEV DEV FS SCH ×4 (06:34→20:56)
--- NOTE | 2019-01-20 07:05 | NUR ---
ENDORSED PT TO DAY SHIFT NURSE. PT IN STABLE CONDITION.
--- NOTE | 2019-01-20 07:06 | NUR ---
RECEIVED BEDSIDE REPORT FROM HEALTH INSURANCE SPECIALIST NURSE. PATIENT IS SLEEPING. NO SIGNS OF DISTRESS ON RA. SKIN IS INTACT. BLE HAS SCABS. REDNESS ON ELBOWS. PATIENT IS BEDBOUND. L SIDE WEAKNESS. FALL RISK PROTOCOL IN PLACE. L HAND 22G SL. CLEAN, DRY AND INTACT. GTUBE IS CLEAN, DRY AND INTACT. INFUSING NEPRO AT 50 W H20 FLUSH 200 Q4HRS. BED IN LOW POSITION. CALL LIGHT WITHIN REACH. WILL CONTINUE TO MONITOR THE PATIENT
[2019-01-20] MEDS: ALBUTEROL SULFATE/IPRATROPIU 3 ML SOL IH SCH ×3 (07:27→19:07)
--- NOTE | 2019-01-20 07:33 | NUR ---
RECEIVED PATIENT AWAKE ON ROOM AIR, PULSE OX SAT 96%. SCHEDULED BREATHING TREATMENT ADMINISTERED. TOLERATED TX WELL, NO ADVERSE SIDE EFFECTS. NO RESPIRATORY DISTRESS NOTED. WILL CONTINUE TO MONITOR.
[2019-01-20 08:00] VITALS: BP 159/90
[2019-01-20] MEDS ORDERED: POTASSIUM CHLORIDE 20% 40 MEQ/15 ML UDC GT SCH (08:25)
[2019-01-20] MEDS ORDERED: VANCOMYCIN PER PHARMACY MC PRN (08:25)
[2019-01-20] MEDS: SENNA 8.6 MG TAB PO SCH ×3 (09:00→16:06)
[2019-01-20] MEDS: LACTULOSE 20 GM/30 ML UDC PO SCH (09:00)
[2019-01-20] MEDS: TAMSULOSIN 0.4 MG CAP PO SCH (09:44)
[2019-01-20] MEDS: ASPIRIN 81 MG TAB.CHEW PO SCH (09:44)
[2019-01-20] MEDS: LACTOBACILLUS RHAMNOSUS GG 1 EACH CAP PO SCH (09:44)
[2019-01-20] MEDS: HYDRAGUARD CREAM TP SCH (09:45)
[2019-01-20] MEDS: ASCORBIC ACID 500 MG TAB GT SCH (09:45)
[2019-01-20] MEDS: LOSARTAN 50 MG TAB PO SCH (09:45)
[2019-01-20] MEDS: amLODIPine 5 MG TAB PO SCH (09:45)
--- NOTE | 2019-01-20 09:55 | NUR ---
CHECKED GTUBE PLACEMENT USING SWOOSH. SWOOSH HEARD. CRUSHED AND ADMINISTERED MEDS. FLUSHED BEFORE AND AFTER. PATIENT TOLERATED WELL. WILL CONTINUE TO MONITOR THE PATIENT.
[2019-01-20 10:27] LABS: BASOPHILS % (AUTO) 0.1 % (0.0-2.0); EOSINOPHILS # (AUTO) 0.1 K/uL (0-0.4); EOSINOPHILS % (AUTO) 0.8 % (0.0-4.0); HEMATOCRIT 41.9 % (36-52); HEMOGLOBIN 13.9 g/dL (12.0-18.0); LYMPHOCYTES # (AUTO) 0.8 K/uL (2.0-11.5); MEAN CORPUSCULAR HEMOGLOBIN 30 pg (27-31); MEAN CORPUSCULAR HGB CONC 33 g/dL (33-37); MEAN CORPUSCULAR VOLUME 90.6 fL (80-94); MONOCYTES # (AUTO) 0.5 K/uL (0.8-1.0); MONOCYTES % (AUTO) 4.8 % (1.7-9.3); NEUTROPHILS % (AUTO) 85.3 % (42.2-75.2); PLATELET COUNT (AUTO) 162 K/uL (140-450); RED BLOOD CELL COUNT(AUTO) 4.63 MIL/uL (4.20-6.10); RED CELL DISTRIBUTION WIDTH 13.6 % (11.6-13.7); WHITE BLOOD COUNT (AUTO) 9.4 K/uL (4.8-10.8)
--- NOTE | 2019-01-20 11:37 | NUR ---
CLEANSED PATIENT. PATIENT IS CLEAN, AND DRY. NO SIGNS OF DISTRESS. WILL CONTINUE TO MONITOR THE PATIENT
[2019-01-20 11:46] LABS: ANION GAP 10.3 (8-16); CARBON DIOXIDE 31.3 mmol/L (21-32); CREATININE 1.1 mg/dL (0.7-1.3)
[2019-01-20 11:47] LABS: POTASSIUM 2.6 mmol/L (3.5-5.1)
[2019-01-20 11:48] LABS: MAGNESIUM 1.9 mg/dL (1.8-2.4); PHOSPHORUS 3.1 mg/dL (2.5-4.9)
[2019-01-20] MEDS ORDERED: POTASSIUM CHLORIDE 40 MEQ, LIDOCAINE MPF 1% - 5 mL VIAL 25 MG in NACL 0.9% 250 ML IV ONE (11:50)
[2019-01-20 12:00] VITALS: BP 143/91
[2019-01-20] MEDS: VANCOMYCIN 750 MG in DEXTROSE 5% 250 ML IV SCH ×2 (12:31→23:49)
--- NOTE | 2019-01-20 13:46 | NUR ---
ADMINISTERED MEDS. PATIENT TOLERATED WELL. WILL CONTINUE TO MONITOR THE PATIENT.
--- NOTE | 2019-01-20 14:03 | NUR ---
FAMILY AT BEDSIDE. SCHEDULED BREATHING TREATMENT ADMINISTERED. TOLERATED TX WELL, NO ADVERSE SIDE EFFECTS. NO RESPIRATORY DISTRESS NOTED. WILL CONTINUE TO MONITOR.
--- NOTE | 2019-01-20 14:55 | NUR ---
AT BEDSIDE. PATIENT IN NO DISTRESS. WILL CONTINUE TO MONITOR THE PATIENT
--- NOTE | 2019-01-20 15:15 | NUR ---
RESIDUAL 5ML. CHANGED FEEDING TO JEVITY 1.2 AT 30ML. WILL CONTINUE TO MONITOR HOW PATIENT TOLERATES FEEDING
--- NOTE | 2019-01-20 15:19 | NUR ---
PLEASE REFER TO NUTRITION PROGRESS NOTE UNDER CARE ACTIVITY FOR ESTIMATED NUTRITION NEEDS. RD RECOMMENDATIONS: 1. RECOMMEND SWITCH TUBE FEEDING FORMULA. NEPRO FORMULARY FOR PT�S ON DIALYSIS AND PT�S RENAL LABS WNL. 2. RECOMMEND JEVITY 1.2 AT 70ML/HR, FWF:200ML Q 6HR VIA G-TUBE. THIS PROVIDES 2016KCAL, 92G PROTEIN, 800ML FREE WATER FLUSH AND 2156ML FLUID DAILY. THIS MEETS 100% CALORIC AND PROTEIN NEEDS. 3. RD WILL F/U 2-3 DAYS HIGH RISK. ASIF CARLSON RD
[2019-01-20 16:00] VITALS: BP 154/97
--- NOTE | 2019-01-20 16:42 | NUR ---
PATIENT TURNED AND CLEANSED BY SPEECH CLINICIAN. WILL CONTINUE TO MONITOR THE PATIENT
--- NOTE | 2019-01-20 17:54 | NUR ---
PATIENTS AT BEDSIDE READING TO THE PATIENT. WILL CONTINUE TO MONITOR
--- NOTE | 2019-01-20 19:15 | NUR ---
GAVE BEDSIDE REPORT TO PHARMACEUTICAL ANALYST NURSE. PATIENT ENDORSED IN STABLE CONDITION. RESIDUAL 5, FEEDING INCREASED TO 40. PATIENT TOLERATING WELL.
--- NOTE | 2019-01-20 19:30 | NUR ---
RECEIVED BEDSIDE REPORT FROM VIVIANA HAMILTON. PATIENT IN BED, APHASIC, ON RA, IV IN LEFT HAND 22 G INFUSING K AT 68 ML/HR. G-TUBE IN PLACE INFUSING JEVITY AT 40 ML/HR, RESIDUALS AT 20ML. NOTED REDNESS ON ELBOWS. NOTED LEFT SIDED WEAKNESS. BED ALARM ON, BED IN LOWEST POSITION. CALL LIGHT WITHIN REACH, WILL CONTINUE TO MONITOR.
[2019-01-20 20:00] VITALS: BP 165/96
[2019-01-20] MEDS: hydrALAZINE 20 MG/ML VIAL IVP PRN (21:00)
[2019-01-20] MEDS: ATORVASTATIN 20 MG TAB PO SCH (21:00)
--- NOTE | 2019-01-20 21:00 | NUR ---
BP 165/96 HR 96. GAVE HYDRALAZINE IVP. WILL REASSESS. BG 114 NO COVERAGE NEEDED.
--- NOTE | 2019-01-20 22:00 | NUR ---
BP 152/90 HR 104. WILL CONTINUE TO MONITOR.
--- NOTE | 2019-01-20 23:15 | NUR ---
RESIDUALS AT 20 ML. INCREASED TUBE FEEDING TO 50 ML/HR. WILL CONTINUE TO MONITOR.
--- NOTE | 2019-01-21 | NUR ---
DUE MEDICATIONS GIVEN. BED ALARM ON WILL CONTINUE TO MONITOR.
--- NOTE | 2019-01-21 | NUR ---
PT DOWN GRADE TO MED SURG AWARE OF HIGH BP. WILL CONTINUE TO MONITOR.
--- NOTE | 2019-01-21 02:00 | NUR ---
PATIENT PULLED OUT IV, 22 G, CATH INTACT. INSERTED IV INTO LEFT UPPER ARM 22 G, WRAPPED WITH GAUZE AND SECURED. WILL CONTINUE TO MONITOR.
[2019-01-21] MEDS: ALBUTEROL SULFATE/IPRATROPIU 3 ML SOL IH SCH ×3 (02:18→18:55)
--- NOTE | 2019-01-21 03:15 | NUR ---
RESIDUALS 20 ML, INCREASED TUBE FEEDING TO 60 ML/HR. WILL CONTINUE TO MONITOR.
[2019-01-21] MEDS: PIPER/TAZO 3.375GM/D5W PREMIX 50 ML IV SCH ×3 (05:14→17:25)
[2019-01-21] MEDS: METOCLOPRAMIDE 10 MG/2 ML INJ VIAL IVP SCH ×3 (05:14→17:25)
--- NOTE | 2019-01-21 05:30 | NUR ---
PATIENT MOVING IN BED, REPOSITIONED FOR COMFORT, BED ALARM ON. DUE MEDICATIONS GIVEN, WILL CONTINUE TO MONITOR.
[2019-01-21] MEDS: BLOOD GLUCOSE MONITORING 1 DEV DEV FS SCH ×4 (07:02→21:39)
--- NOTE | 2019-01-21 07:15 | NUR ---
RESIDUALS AT 20 ML. INCREASED TUBE FEEDING TO 70 ML/HR.
--- NOTE | 2019-01-21 07:31 | NUR ---
ENDORSED PATIENT TO DAY SHIFT NURSE, PATIENT STABLE.
--- NOTE | 2019-01-21 07:32 | NUR ---
RECEIVED BEDSIDE REPORT FROM ELECTRICIAN SECOND NURSE. PATIENT IS SLEEPING. NO SIGNS OF DISTRESS. NONVERBAL. SKIN IS INTACT. LLE SCABS. ELBOW REDNESS. FALL RISK PROTOCOL IN PLACE. PATIENT IS BEDREST. GTUBE IN PLACE. JEVITY AT 70 CLEAN, DRY AND INTACT. PATIENT IS INCONTINENT. ROSAURA 22G SL. CLEAN, DRY AND INTACT. BED IN LOW POSITION. CALL LIGHT WITHIN REACH. WILL CONTINUE TO MONITOR THE PATIENT
[2019-01-21 07:38] LABS: BASOPHILS % (AUTO) 0.5 % (0.0-2.0); EOSINOPHILS # (AUTO) 0.1 K/uL (0-0.4); EOSINOPHILS % (AUTO) 1.3 % (0.0-4.0); HEMATOCRIT 40.9 % (36-52); HEMOGLOBIN 13.5 g/dL (12.0-18.0); LYMPHOCYTES # (AUTO) 1.2 K/uL (2.0-11.5); LYMPHOCYTES % (AUTO) 16.3 % (20.5-51.1); MEAN CORPUSCULAR HEMOGLOBIN 30 pg (27-31); MEAN CORPUSCULAR HGB CONC 33 g/dL (33-37); MEAN CORPUSCULAR VOLUME 90.7 fL (80-94); MONOCYTES # (AUTO) 0.5 K/uL (0.8-1.0); MONOCYTES % (AUTO) 6.6 % (1.7-9.3); NEUTROPHILS # (AUTO) 5.6 K/uL (1.8-7.7); NEUTROPHILS % (AUTO) 75.3 % (42.2-75.2); PLATELET COUNT (AUTO) 166 K/uL (140-450); RED BLOOD CELL COUNT(AUTO) 4.51 MIL/uL (4.20-6.10); RED CELL DISTRIBUTION WIDTH 13.5 % (11.6-13.7); WHITE BLOOD COUNT (AUTO) 7.4 K/uL (4.8-10.8)
[2019-01-21 08:00] VITALS: BP 143/99
[2019-01-21 08:32] LABS: MAGNESIUM 1.9 mg/dL (1.8-2.4); PHOSPHORUS 3.7 mg/dL (2.5-4.9)
[2019-01-21 08:34] LABS: CARBON DIOXIDE 29.9 mmol/L (21-32); CREATININE 1.1 mg/dL (0.7-1.3)
[2019-01-21 08:41] LABS: POTASSIUM 2.9 mmol/L (3.5-5.1)
[2019-01-21] MEDS: SENNA 8.6 MG TAB PO SCH ×3 (09:00→17:00)
[2019-01-21] MEDS: LACTULOSE 20 GM/30 ML UDC PO SCH (09:00)
[2019-01-21] MEDS ORDERED: POTASSIUM CHLORIDE 40 MEQ, LIDOCAINE MPF 1% - 5 mL VIAL 25 MG in NACL 0.9% 250 ML IV ONE (09:00)
[2019-01-21] MEDS: ASPIRIN 81 MG TAB.CHEW PO SCH (09:26)
[2019-01-21] MEDS: ASCORBIC ACID 500 MG TAB GT SCH (09:26)
[2019-01-21] MEDS: TAMSULOSIN 0.4 MG CAP PO SCH (09:27)
[2019-01-21] MEDS: LACTOBACILLUS RHAMNOSUS GG 1 EACH CAP PO SCH (09:27)
[2019-01-21] MEDS: LOSARTAN 50 MG TAB PO SCH (09:28)
[2019-01-21] MEDS: amLODIPine 5 MG TAB PO SCH (09:29)
[2019-01-21] MEDS: HYDRAGUARD CREAM TP SCH (09:38)
--- NOTE | 2019-01-21 09:43 | NUR ---
CHECKED GTUBE PLACEMENT USING SWOOSH. SWOOSH HEARD. NO RESIDUAL. CRUSHED AND ADMINISTERED MEDS. FLUSHED BEFORE AND AFTER. PATIENT TOLERATED WELL. CHANGED THE GTUBE FLUSH TO 200 Q 4HRS. WILL CONTINUE TO MONITOR THE PATIENT,
--- NOTE | 2019-01-21 11:56 | NUR ---
ADMINISTERED MEDS. PATIENT TOLERATED WELL. AND FRIEND AT BEDSIDE. WILL CONTINUE TO MONITOR
--- NOTE | 2019-01-21 13:03 | NUR ---
PATIENT LAYING IN BED. NO SIGNS OF DISTRESS. WILL CONTINUE TO MONITOR
[2019-01-21] MEDS: VANCOMYCIN 750 MG in DEXTROSE 5% 250 ML IV SCH ×2 (13:21→23:23)
--- NOTE | 2019-01-21 14:44 | NUR ---
CHECKED FOR GTUBE USING SWOOSH. SWOOSH HEARD. 30ML RESIDUAL. STARTED NEW FEEDING VITAL A.F AT 30 W H20 FLUSH 200 Q4HRS. WILL CONTINUE TO MONITOR THE PATIENT.
[2019-01-21 16:00] VITALS: BP 134/88
--- NOTE | 2019-01-21 16:00 | NUR ---
PATIENT LAYING IN BED. NO SIGNS OF DISTRESS, WILL CONTINUE TO MONITOR
--- NOTE | 2019-01-21 17:26 | NUR ---
AT BEDSIDE. NO SIGNS OF DISTRESS. ADMINISTERED MEDS. WILL CONTINUE TO MONITOR THE PATIENT.
--- NOTE | 2019-01-21 18:31 | NUR ---
RESIDUAL 10. INCREASED FEEDING TO 40ML. WILL CONTINUE TO MONITOR
--- NOTE | 2019-01-21 19:23 | NUR ---
GAVE BEDSIDE REPORT FROM SAFETY SUPERVISOR NURSE. PATIENT ENDORSED IN STABLE CONDITION
--- NOTE | 2019-01-21 19:25 | NUR ---
RECD. RESTING IN BED, AWAKE, ALERT, NON-VERBAL. RESPIRATION EVEN AND UNLABORED. K-RIDER INFUSING, RIGHT UPPER ARM G22. GT FEEDING OF VITAL AF INFUSING AT 30 ML/HR. BILATERAL ELBOWS WITH COVERED WITH DRESSING, DRY AND INTACT. LEFT KNEE WITH SCABS. SAFETY MEASURES ENFORCED, OCCASIONALLY TRIES TO GET OUT OF BED. AT THE BEDSIDE. PLAN OF CARE FOR THE SHIFT DISCUSSED WITH PATIENT AND . VERBALIZED UNDERSTANDING. NO APPEARANCE OF PAIN NOTED, 0/10.
--- NOTE | 2019-01-21 20:00 | NUR ---
Patient's Plan of Care was discussed and reviewed with CHART SNATCHER: MATY, WILL CONTINUE WITH CURRENT POC.
[2019-01-21] MEDS: ATORVASTATIN 20 MG TAB PO SCH (21:39)
--- NOTE | 2019-01-21 21:39 | NUR ---
DUE GT MEDICATION GIVEN, TOLERATED WELL. AT THE BEDSIDE. CALM, NO ATTEMPT TO GET OUT OF BED. RESIDUAL CHECKED - 5 ML, GT FEEDING TOLERATED WELL.
[2019-01-22] VITALS: BP 126/89
--- NOTE | 2019-01-22 | NUR ---
SLEEPING COMFORTABLY IN BED, VS STABLE.
[2019-01-22] MEDS: PIPER/TAZO 3.375GM/D5W PREMIX 50 ML IV SCH ×4 (00:22→17:38)
[2019-01-22] MEDS: METOCLOPRAMIDE 10 MG/2 ML INJ VIAL IVP SCH ×4 (00:23→17:38)
--- NOTE | 2019-01-22 04:50 | NUR ---
STILL SLEEPING COMFORTABLY IN BED, SAFETY MEASURES ENFORCED. BED ON ALARM.
[2019-01-22 05:37] VITALS: BP 128/84
[2019-01-22] MEDS: BLOOD GLUCOSE MONITORING 1 DEV DEV FS SCH ×3 (05:59→16:30)
--- NOTE | 2019-01-22 06:43 | NUR ---
OCCASIONALLY WAKE UP AND TRIES TO GET OUT OF BED. SAFETY MAINTAINED. CONDITION REMAIN STABLE. WILL ENDORSE TO AM NURSE FOR CONTINUITY OF CARE.
[2019-01-22] MEDS: ALBUTEROL SULFATE/IPRATROPIU 3 ML SOL IH SCH (06:56)
--- NOTE | 2019-01-22 07:25 | NUR ---
RECEIVED REPORT FROM TALENT MANAGEMENT SPECIALIST NURSE. PATIENT LYING DOWN IN BED, CONFUSED, TRYING TO GET OUT OF BED. NO DISTRESS NOTED. FLACC 0. AAOX1, CONFUSED, SKIN COLOR APPROPRIATE TO ETHNICITY, WARM TO TOUCH. HAS B/L ELBOW REDNESS NOTED, OTHERWISE, SKIN INTACT. IV SITE INTACT, PATENT, AND INFUSING IVF PER MD ORDERS. GTUBE SITE INTACT, PATENT, AND INFUSING GTUBE FEEDING PER MD ORDERS. SAFETY MEASURES IN PLACE, CALL LIGHT WITHIN REACH. WILL CONTINUE TO MONITOR.
[2019-01-22] MEDS ORDERED: ALBUTEROL SULFATE/IPRATROPIU 3 ML SOL IH SCH (07:50)
[2019-01-22 08:00] VITALS: BP 116/83
[2019-01-22] MEDS ORDERED: KCL 20 MEQ/WATER INJ PREMIX 100 ML IV SCH (08:00)
--- NOTE | 2019-01-22 08:35 | NUR ---
ASSISTED BAIL ATTACHER IN CLEANING AND REPOSITIONING PATIENT. WILL CONTINUE TO MONITOR.
[2019-01-22] MEDS: TAMSULOSIN 0.4 MG CAP PO SCH (10:00)
[2019-01-22] MEDS: LACTULOSE 20 GM/30 ML UDC PO SCH (10:00)
[2019-01-22] MEDS: amLODIPine 5 MG TAB PO SCH (10:01)
[2019-01-22] MEDS: LACTOBACILLUS RHAMNOSUS GG 1 EACH CAP PO SCH (10:01)
[2019-01-22] MEDS: SENNA 8.6 MG TAB PO SCH ×3 (10:01→17:38)
[2019-01-22] MEDS: LOSARTAN 50 MG TAB PO SCH (10:01)
[2019-01-22] MEDS: ASPIRIN 81 MG TAB.CHEW PO SCH (10:01)
[2019-01-22] MEDS: ASCORBIC ACID 500 MG TAB GT SCH (10:01)
[2019-01-22] MEDS: HYDRAGUARD CREAM TP SCH (10:02)
--- NOTE | 2019-01-22 10:17 | NUR ---
PATIENT LYING DOWN IN BED SLEEPING, AROUSABLE BY VOICE. NO DISTRESS NOTED. FLACC 0. SCHEDULED MEDICATIONS DUE GIVEN. WILL CONTINUE TO MONITOR.
[2019-01-22] MEDS: VANCOMYCIN 750 MG in DEXTROSE 5% 250 ML IV SCH (11:17)
--- NOTE | 2019-01-22 11:53 | NUR ---
Called [facility] and spoke with Madison. Informed Madison we need AUTH for the pt's tube feeding. She told me to call [facility] . Called [facility] and spoke with Mc and she told me the pt is under [facility] and to call [facility] ext [phone]. Called [facility] but covered by Cordelia ext [phone]. Left a message to Cordelia to call back.
--- NOTE | 2019-01-22 12:15 | NUR ---
SITE TECHNICIAN AT BEDSIDE SPEAKING WITH PATIENT/, [facility] WILL BE ARRANGED FOR PATIENT TO GO HOME. PER SITE TECHNICIAN DISCUSSED, WILL GIVE PATIENT'S AT BEDSIDE 4 VITAL AF BOTTLES TO TAKE HOME AND PATIENT'S WILL FOLLOW-UP WITH PCP AND [facility] FOR MORE GTUBE FEEDING BOTTLES WHEN RUN OUT. PATIENT'S VERBALIZED UNDERSTANDING OF PLAN OF DISCHARGE. WILL CONTINUE TO MONITOR.
--- NOTE | 2019-01-22 12:33 | NUR ---
PATIENT IV LINE INFILTRATED, AT BEDSIDE. PATIENT TO BE DISCHARGED HOME TODAY. REFUSES NEW IV LINE INSERT AT THIS TIME. POTASSIUM NOT GIVEN THAT WAS SCHEDULED AT 0800 [address]USE WAITING FOR TODAY'S LAB VALUES BUT MD CANCELLED DUE TO PATIENT GOING HOME. WILL CONTINUE TO MONITOR.
--- NOTE | 2019-01-22 12:58 | NUR ---
PATIENT'S IV LINE WAS INFILTRATED. PATIENT'S AT BEDSIDE REFUSES NEW IV LINE PLACEMENT DUE TO PATIENT GOING HOME TODAY. POTASSIUM VIA IV NOT GIVEN, AND OTHER SCHEDULED IV MEDICATIONS NOT GIVEN AT THIS TIME DUE TO NO IV LINE AND PATIENT REFUSING NEW IV LINE PLACEMENT. WILL CONTINUE TO MONITOR.
--- NOTE | 2019-01-22 13:02 | NUR ---
1215 MET WITH AT BEDSIDE WITH ASSIGNED NURSE JERMAINE NICHOLS AND NURSE HERMINIA WHO SPEAKS MANDARIN. PER SHE HAS A FEEDING PUMP AT HOME WHICH ANOTHER HOSPITAL HAD ARRANGED AND SAID THAT WHEN SHE RAN OUT OF FORMULA THE COMPANY WOULD NOT SEND ANYMORE UNTIL THEY GOT AN RX FROM PCP BUT SHE WAS NOT ABLE TO TAKE PATIENT IN. INFORMED HER THAT THE PHYSICIAN HAS WRITTEN A PRESCRIPTION FOR A MONTH BUT SHE MUST FOLLOW UP AND IF SHE PLANS TO REMAIN IN [facility] SHE NEEDS TO CHANGE HIS INSURANCE TO A PLAN IN THE [facility] THE INSURANCE IS CURRENTLY IN [facility] AND CM HAS BEEN HAVING DIFFICULTY GETTING SERVICES DUE TO SHE IS LIVING OUTSIDE THE INSURANCE NETWORK. WAS ALSO INSTRUCTED NOT TO FEED PATIENT BY MOUTH HE IS AN ASPIRATION RISK. CM WILL ARRANGE FOR A GURNEY TRANSPORT TO HOME PATIENT REQUIRES 2 PERSON ASSIST FOR TRANSFERS. IN AGREEMENT.
--- NOTE | 2019-01-22 13:38 | NUR ---
Transportation arranged with pt will be picked up at 1800 from room 110 A and transported to their home [address]. [id number]. Rishabh Crowder RN for the picker / packer time.
--- NOTE | 2019-01-22 14:00 | NUR ---
ASSISTED COAT IRONER HAND IN CLEANING AND REPOSITIONING PATIENT. WILL CONTINUE TO MONITOR.
--- NOTE | 2019-01-22 15:36 | NUR ---
[id number] CALLED HEATH AT [facility] [phone] TO INFORM HER THAT DUE TO INABILITY TO GET AUTHORIZATION FROM [facility] OR [facility] FOR PATIENTS ENTERAL FEEDING [facility] WILL PROVIDE PATIENT WITH SOME FORMULA AND ALSO WILL COVER COST FOR GURNEY TRANSPORT TO GET PATIENT SAFELY HOME. LEFT VM MESSAGE AND INCLUDED THAT [facility] STATES THAT [facility] IS RESPONSIBLE FOR AUTHORIZATION AND [facility] IS STATING THAT [facility] IS RESPONSIBLE FOR COST. TRIED TO CALL [facility] BUT UNABLE TO CONNECT WITH ANYONE AND REMAIND ON HOLD X 10 MINUTES.
[2019-01-22 16:00] VITALS: BP 140/85
--- NOTE | 2019-01-22 16:00 | NUR ---
PATIENT LYING DOWN IN BED SLEEPING, AT BEDSIDE. NO DISTRESS NOTED. FLACC 0. WILL CONTINUE TO MONITOR.
--- NOTE | 2019-01-22 18:00 | NUR ---
DISCHARGE INSTRUCTIONS PROVIDED TO PATIENT/ AT BEDSIDE. FOLLOW-UP INSTRUCTIONS PROVIDED TO PATIENT/, NEW/CHANGED MEDICATION REGIMEN, FOLLOW-UP VISIT WITH PCP, [facility] FORMULA CONTINUOUS FEEDING AT HOME AND TO FOLLOW-UP WITH [facility] FOR CONTINUED FORMULA DELIEVERY AT HOME PER MILK HOUSE WORKER KAYLENE DISCUSSED WITH EARLIER. ANSWERED ALL OF PATIENT/'S QUESTIONS REGARDING DISCHARGE. AWAITING FOR [facility] AT THIS TIME TO ARRIVE TO TAKE PATIENT HOME. WILL CONTINUE TO MONITOR.
--- NOTE | 2019-01-22 19:26 | NUR ---
AWAITING FOR [facility] TO ARRIVE TO TAKE PATIENT HOME.
--- NOTE | 2019-01-22 19:26 | NUR ---
GAVE REPORT TO TANK TRUCK LOADER NURSE FOR CONTINUITY OF CARE. PATIENT IN STABLE CONDITION.
--- NOTE | 2019-01-22 19:49 | NUR ---
[facility] ARRIVED TO TRANSPORT PATIENT TO HOME. IV REMOVED, TIP INTACT. LEFT THE UNIT VIA GURNEY, ASSISTED BY TWO [facility] AND . PATIENT IN STABLE CONDITION.
== END 2019-01-22 19:49 | disposition home or self-care (01) | DRG 252 ==
LOC: MED 10:44 → MTU 14:26
PROVIDERS: ADMIT General Practice; ATTEND General Practice
DX: K94.23 Gastrostomy malfunction (principal); N17.0 Acute kidney failure with tubular necrosis; J69.0 Pneumonitis due to inhalation of food and vomit; A41.9 Sepsis, unspecified organism; J15.6 Pneumonia due to other Gram-negative bacteria; E83.39 Other disorders of phosphorus metabolism; R13.10 Dysphagia, unspecified; E87.0 Hyperosmolality and hypernatremia; F03.90 Unspecified dementia, unspecified severity, without behavioral disturbance, psychotic disturbance, mood disturbance, and anxiety; E86.0 Dehydration; E83.41 Hypermagnesemia; G90.8 Other disorders of autonomic nervous system; I10 Essential (primary) hypertension; Z86.73 Personal history of transient ischemic attack (TIA), and cerebral infarction without residual deficits; R62.7 Adult failure to thrive; Z68.25 Body mass index [BMI] 25.0-25.9, adult; E78.00 Pure hypercholesterolemia, unspecified; N28.1 Cyst of kidney, acquired; E79.0 Hyperuricemia without signs of inflammatory arthritis and tophaceous disease; K59.00 Constipation, unspecified; Z91.19 Patient's noncompliance with other medical treatment and regimen; R73.03 Prediabetes
CPT/HCPCS: 36415; 70450; 71045; 80048; 80053; 80202; 80305; 81001; 82009; 82140; 82150; 82550; 82553; 82948; 82977; 83036; 83605; 83690; 83735; 83874; 83880; 84100; 84134; 84443; 84484; 84550; 85025; 85610; 85730; 87040; 87081; 87086; 92610; 93005; 93880; 93925; 93970; 94640; 96361; 96365; 96375; 97530; 99285; C1758; J0360; J1815; J2001; J2060; J2405; J2543; J2765; J3370; J3480; J3490; J7030; J7060; J7620; Q0092